=== PATIENT | female | born 2000 | race Two or more races ===

== ENCOUNTER 2020-05-28 08:08 | Emergency (ER) | payer OTHER ==
[~2020-05-28] VITALS: Ht 157.5 cm; Wt 49.9 kg
[2020-05-28] MEDS ORDERED: PRENA1 TRUE CO1 EACH (08:27)
== END 2020-05-28 12:26 | disposition home or self-care (01) ==
LOC: ER 08:08
DX: R09.81 Nasal congestion (principal); R51.9 Headache, unspecified

== ENCOUNTER 2020-06-02 20:22 | Emergency (ER) | payer OTHER ==
[~2020-06-02] VITALS: Ht 157.5 cm; Wt 49.9 kg
[~2020-06-02 20:22] MED LIST: PRENA1 TRUE CO1 EACH
== END 2020-06-03 03:58 | disposition home or self-care (01) ==
LOC: ER 20:22 → EDBD 20:28 → ER 06-03 03:58
DX: O20.0 Threatened abortion (principal); Z3A.01 Less than 8 weeks gestation of pregnancy

== ENCOUNTER 2020-06-27 22:30 | Emergency (ER) | payer OTHER ==
[~2020-06-27] VITALS: Ht 157.5 cm; Wt 51.3 kg
[2020-06-28] MEDS ORDERED: ZOFRAN4 MG PO (01:01)
[2020-06-28] MEDS ORDERED: ACETAMINOPHEN650 M2 PO (01:01)
== END 2020-06-28 01:35 | disposition home or self-care (01) ==
LOC: ER 22:30 → EDBD 22:36 → ER 06-28 01:35
DX: O21.1 Hyperemesis gravidarum with metabolic disturbance (principal); Z20.822 Contact with and (suspected) exposure to COVID-19

== ENCOUNTER 2020-08-07 14:06 | Emergency (ER) | payer OTHER ==
[~2020-08-07] VITALS: Ht 157.5 cm; Wt 52.2 kg
[~2020-08-07 14:06] MED LIST changes: +ACETAMINOPHEN650 M2 PO; +ZOFRAN4 MG PO
== END 2020-08-07 18:42 | disposition home or self-care (01) ==
LOC: ER 14:06
DX: O43.892 Other placental disorders, second trimester (principal); O26.852 Spotting complicating pregnancy, second trimester; O36.80X1 Pregnancy with inconclusive fetal viability, fetus 1; O26.892 Other specified pregnancy related conditions, second trimester; R10.2 Pelvic and perineal pain; Z3A.16 16 weeks gestation of pregnancy

== ENCOUNTER → 2020-09-04 | Outpatient (CLI) | payer OTHER | END | disposition home or self-care (01) | LOC: PRENATAL 11:00 | PROVIDERS: ATTEND Obstetrics & Gynecology Maternal & Fetal Medicine | DX: O35.0XX1 Maternal care for (suspected) central nervous system malformation in fetus, fetus 1 (principal); O35.3XX1 Maternal care for (suspected) damage to fetus from viral disease in mother, fetus 1; O98.512 Other viral diseases complicating pregnancy, second trimester; O44.02 Complete placenta previa NOS or without hemorrhage, second trimester; O09.212 Supervision of pregnancy with history of pre-term labor, second trimester; Z36.89 Encounter for other specified antenatal screening; Z3A.20 20 weeks gestation of pregnancy ==

== ENCOUNTER 2020-11-24 05:10 | Inpatient (IN) | payer OTHER ==
[~2020-11-24] VITALS: Ht 157.5 cm; Wt 63.5 kg
[2020-11-24] MEDS ORDERED: FOLBEE PLUS CZ1 EACH PO (07:41)
== END 2020-11-26 15:50 | disposition home or self-care (01) | DRG 807 ==
LOC: OB/GYN 05:10 → LDR 05:10 → OB/GYN 09:53
PROVIDERS: ADMIT Obstetrics & Gynecology Obstetrics; ATTEND Obstetrics & Gynecology Obstetrics
PROC: 10E0XZZ Delivery of Products of Conception, External Approach (ICD-10-PCS; principal; 2020-11-24)
PROC: 10907ZC Drainage of Amniotic Fluid, Therapeutic from Products of Conception, Via Natural or Artificial Opening (ICD-10-PCS; 2020-11-24)
PROC: 4A1HXFZ Monitoring of Products of Conception, Cardiac Rhythm, External Approach (ICD-10-PCS; 2020-11-24)
DX: O45.93 Premature separation of placenta, unspecified, third trimester (principal); Z37.0 Single live birth; Z3A.32 32 weeks gestation of pregnancy; Z20.822 Contact with and (suspected) exposure to COVID-19

== ENCOUNTER 2020-12-08 10:31 | Emergency (ER) | payer OTHER ==
[~2020-12-08] VITALS: Ht 157.5 cm; Wt 54.0 kg
[~2020-12-08 10:31] MED LIST changes: +FOLBEE PLUS CZ1 EACH PO
== END 2020-12-08 15:52 | disposition home or self-care (01) ==
LOC: ER 10:31
DX: N61.0 Mastitis without abscess (principal)

== ENCOUNTER 2021-02-18 08:00 | Outpatient (CLI) | payer OTHER | END 2021-02-18 08:30 | disposition home or self-care (01) | LOC: PPH VACUNA 08:00 | DX: Z23 Encounter for immunization (principal) ==

== ENCOUNTER 2021-03-18 08:00 | Outpatient (CLI) | payer OTHER | END 2021-03-18 08:30 | disposition home or self-care (01) | LOC: PPH VACUNA 08:00 | PROVIDERS: ATTEND Emergency Medicine Pediatric Emergency Medicine | DX: Z23 Encounter for immunization (principal) ==

== ENCOUNTER 2022-07-06 10:00 | Emergency (ER) | payer OTHER ==
[~2022-07-06] VITALS: Ht 157.5 cm; Wt 48.5 kg
[~2022-07-06 10:00] MED LIST changes: +PANADOL
== END 2022-07-06 14:04 | disposition home or self-care (01) ==
LOC: ER 10:00
DX: M62.838 Other muscle spasm (principal); Z88.6 Allergy status to analgesic agent

== ENCOUNTER 2023-03-05 15:00 | Emergency (ER) | payer OTHER ==
[~2023-03-05] VITALS: Ht 157.5 cm; Wt 48.1 kg
== END 2023-03-05 19:14 | disposition home or self-care (01) ==
LOC: ER 15:01
DX: M54.9 Dorsalgia, unspecified (principal); Z88.6 Allergy status to analgesic agent

== ENCOUNTER 2023-03-08 14:51 | Emergency (ER) | payer OTHER ==
[~2023-03-08] VITALS: Ht 162.6 cm; Wt 49.9 kg
[2023-03-08 21:39] LABS: CALCIUM 9.1 mg/dL (8.5-10.1); CREATININE SERUM 0.8 mg/dL (0.55-1.02); GFR 88.89; POTASSIUM 3.88 mEq/L (3.5-5.1)
[2023-03-08] MEDS ORDERED: DEXAMETHASONE4 MG PO ×2 (22:29→22:33)
[2023-03-08] MEDS ORDERED: VISTARIL25 MG PO (22:33)
== END 2023-03-08 22:40 | disposition home or self-care (01) ==
LOC: ER 14:52
PROVIDERS: Nurse Practitioner Family
DX: R00.2 Palpitations (principal); T50.995A Adverse effect of other drugs, medicaments and biological substances, initial encounter; Z88.6 Allergy status to analgesic agent; F41.9 Anxiety disorder, unspecified

== ENCOUNTER 2023-12-25 17:30 | Emergency (ER) | payer OTHER ==
[~2023-12-25] VITALS: Ht 157.5 cm; Wt 49.0 kg
[~2023-12-25 17:30] MED LIST changes: +DEXAMETHASONE4 MG PO; +VISTARIL25 MG PO
[2023-12-25] MEDS ORDERED: DEXAMETHASONE SODIUM PHOSPHATE 4 MG/ML VIAL IM ONE (18:30)
[2023-12-25 19:06] LABS: HEMATOCRIT 39.6 % (36.0-45.00); HEMOGLOBIN 13.7 g/dL (12.0-15.00); MEAN CELL VOLUME 88.6 fL (80.00-100.00); MEAN CORPUSCULAR HEMOGLOBIN 30.7 pg (27.00-32.0); MEAN CORPUSCULAR HGB CONC 34.7 g/dl (32.0-36.0); PLATELET COUNT 158 K/uL (150-450); RED BLOOD COUNT 4.47 M/uL (4.00-6.00); RED CELL DISTRIBUTION WIDTH 12.5 % (11.5-14.5)
== END 2023-12-25 19:46 | disposition home or self-care (01) ==
LOC: ER 17:31
PROVIDERS: General Practice
DX: J10.1 Influenza due to other identified influenza virus with other respiratory manifestations (principal); Z20.822 Contact with and (suspected) exposure to COVID-19; Z88.6 Allergy status to analgesic agent; Z88.8 Allergy status to other drugs, medicaments and biological substances